=== PATIENT | female | born 1985 | race Hispanic/Latino ===

== ENCOUNTER 2017-10-25 09:39 | Emergency (ER) | payer OTHER ==
[~2017-10-25] VITALS: Ht 154.9 cm; Wt 67.3 kg
[~2017-10-25 09:39] MED LIST: IBUPROFEN800 MG PO
[2017-10-25] MEDS ORDERED: AUGMENTIN875 MG PO (10:21)
[2017-10-25] MEDS ORDERED: FLOXIN OTIC SOLN5 ML LEFT EAR (10:21)
[2017-10-25] MEDS ORDERED: MOTRIN800 MG PO (10:21)
[2017-10-25 10:32] VITALS: BP 121/81
== END 2017-10-25 10:36 | disposition home or self-care (01) ==
LOC: EME 09:39
DX: H66.92 Otitis media, unspecified, left ear (principal); H72.92 Unspecified perforation of tympanic membrane, left ear
CPT/HCPCS: 99281; 99284

== ENCOUNTER → 2018-03-23 | Outpatient (CLI) | payer OTHER ==
[~2018-03-23] MED LIST changes: +AUGMENTIN875 MG PO; +FLOXIN OTIC SOLN5 ML LEFT EAR; +MOTRIN800 MG PO
== END | disposition home or self-care (01) ==
LOC: RES 03-19 11:00
DX: R94.2 Abnormal results of pulmonary function studies (principal)
CPT/HCPCS: 94060; 94726; 94729